=== PATIENT | male | born 1975 | race Caucasian/White ===

== ENCOUNTER 2021-01-25 13:06 | Outpatient (CLI) | payer SELFPAY ==
--- NOTE | 2021-01-25 13:16 | XR_ITS ---
WS: [id number] Cervical spine, 3 views, 01/25/2021 Clinical Data: M54.2 - Cervicalgia Comparison: None. Findings: No compression fractures are seen. The disc heights are normal. There is no prevertebral so ft tissue swelling. There is minimal spurring of the anterior inferior C3 vertebral body. The odontoi d is unremarkable. The soft tissues of the neck and the lung apices are normal. XR/XR cervical spine 3V* [id number] Impression: Minimal C3 osteoarthritis.
[2021-01-25 14:07] LABS: Alanine Aminotransferase 18 U/L (0-41); Albumin Level 4.4 g/dL (3.5-5.2); Alkaline Phosphatase 84 IU/L (40-130); Anion Gap 15.8 (5-19); Aspartate Amino Transferase 17 U/L (0-40); Blood Urea Nitrogen 6 mg/dL (6-20); Calcium 8.8 mg/dL (8.5-10.5); Carbon Dioxide 23 mmol/L (22-29); Chloride 105 mmol/L (98-107); Chol HDL Ratio 4.97 mg/dL (1.0-5.00); Cholesterol 149 mg/dL (0-200); Globulin 2.3 g/dL (1.3-4.6); Glomerular Filtration Rate 123.1 mL/min (90-130); Glucose 94 mg/dL (65-115); HDL Cholesterol 30 mg/dL (60-100); LDL Cholesterol Calculated 73 mg/dL (50-129); LDL HDL Ratio 2.43 RATIO (0.00-3.22); Osmolality Calculated 287 mOsm/kg (285-295); Potassium 3.8 mmol/L (3.5-5.1); Sodium 140 mmol/L (136-145); Testosterone Total 493.2 ng/dL (249-836); Thyroid Stimulating Hormone 1.13 uIU/mL (0.27-4.20); Total Bilirubin 0.4 mg/dL (0.15-1.2); Total Protein 6.7 g/dL (6.6-8.7); Triglycerides 228 mg/dL (0-150)
== END 2021-01-25 13:07 | disposition home or self-care (01) ==
LOC: RAD 13:11
PROVIDERS: PCP Nurse Practitioner Family; Visit Provider Nurse Practitioner Family
DX: I10 Essential (primary) hypertension (principal); R53.83 Other fatigue; E78.5 Hyperlipidemia, unspecified; M47.812 Spondylosis without myelopathy or radiculopathy, cervical region
CPT/HCPCS: 72040; 80053; 80061; 84403; 84443

== ENCOUNTER 2023-04-17 15:22 | Outpatient (CLI) | payer OTHER, SELFPAY ==
--- NOTE | 2023-04-17 15:39 | XRR_ITS ---
PROCEDURE INFORMATION: Exam: XR Right Foot Exam date and time: 04/17/2023 3:57 PM Age: 47 years old Clinical indication: Pain and injury or trauma; Other: Twisted ankle 2 weeks ago; Swelling, leg or foot; Right; Patient HX: Swollen and medial pain; Additional info: M25.571 - pain in right ankle and joints of right foot TECHNIQUE: Imaging protocol: Radiologic exam of the right foot. Views: 3 or more views. COMPARISON: No relevant prior studies available. FINDINGS: Bones/joints: No acute fracture. No dislocation. Normal bone mineralization. No joint effusion. Joint spaces are maintained. Soft tissues: No soft tissue swelling. No radiopaque foreign body. XR/XR foot RT min 3V* [id number] IMPRESSION: Negative radiographs of the right foot. Followup imaging recommended in 7-14 days if clinical concern for fracture persists.
[2023-04-17 16:02] LABS: Uric Acid 5.3 mg/dL (3.4-7.0)
== END 2023-04-17 15:23 | disposition home or self-care (01) ==
LOC: LAB 15:24
PROVIDERS: PCP Nurse Practitioner Family; Visit Provider Nurse Practitioner Family
DX: M25.571 Pain in right ankle and joints of right foot
CPT/HCPCS: 73630; 84550

== ENCOUNTER 2023-04-22 11:00 | Outpatient (CLI) | payer OTHER, SELFPAY | END 2023-04-22 11:01 | disposition home or self-care (01) | LOC: SPT 11:01 | PROVIDERS: PCP Nurse Practitioner Family; Visit Provider Podiatrist Foot & Ankle Surgery | DX: Z46.89 Encounter for fitting and adjustment of other specified devices (principal); S99.921D Unspecified injury of right foot, subsequent encounter; X58.XXXD Exposure to other specified factors, subsequent encounter; S93.401A Sprain of unspecified ligament of right ankle, initial encounter; X50.9XXA Other and unspecified overexertion or strenuous movements or postures, initial encounter | CPT/HCPCS: 97760; 99203; L1902 ==

== ENCOUNTER → 2023-05-06 09:42 | Outpatient (BNVA) | payer OTHER, SELFPAY | PROVIDERS: PCP Nurse Practitioner Family; Visit Provider Podiatrist Foot & Ankle Surgery | DX: M84.373A Stress fracture, unspecified ankle, initial encounter for fracture (principal); S93.401A Sprain of unspecified ligament of right ankle, initial encounter; X50.9XXA Other and unspecified overexertion or strenuous movements or postures, initial encounter | CPT/HCPCS: 99213 ==

== ENCOUNTER 2023-05-21 16:53 | Outpatient (CLI) | payer OTHER, SELFPAY ==
--- NOTE | 2023-05-21 16:45 | MR_ITS ---
WS: [id number] MRI RIGHT ANKLE WITHOUT CONTRAST. COMPARISON: Radiographs RIGHT foot 04/17/2023 Multiplanar, multisequence imaging is performed without contrast. Moderate amount of marrow edema throughout the navicular. No fracture is identified by MRI. There is narrowing of the talonavicular joint space with fluid and edema surrounding the navicular. Calcaneus including the anterior calcaneal process is normal. There is additional very small amount of edema in the anterior medial talus which may be an impaction point with the abnormal navicular. The distal fi bula appears normal. Base of the fifth metatarsal is normal. There is minimal fluid in the posterior joint. There is soft tissue edema most significant surroundin g the abnormal navicular. The anterior tibial tendon is closely associated with the edema but the tendon itself appears normal. This is also the area where the pain marker is placed. There is edema extending along the tendon she ath but no tear. The extensor hallucis longus and extensor digitorum longus tendons are negative. Per bruno brevis and longus are normal. The flexor digitorum and flexor hallucis longus are normal. Abnormal posterior tibial tendon where it is closely associated with the dorsal surface of the navicu lar. There is loss of the normal tendon. There is increased signal in this location along with the ab normal navicular. There is loss of continuity and I suspect there is at least a partial tear if not c omplete tear. Anterior talofibular ligament is a small caliber and poorly visualized in its entirety. There is not a lot of edema in this location. The posterior talofibular ligament is normal. Spring ligament is thi n with some increased T2 signal but no complete tear. Mild increased T2 striations in the deltoid lig ament which is normal. There is no full-thickness tear. IMPRESSION: 1. Extensive acute marrow edema throughout the navicular. There is additional edema within the adjac ent anteromedial talus which is probably an impaction point from the trauma. I suspect there are prob ably microfractures. For more sensitive evaluation for fracture consider follow-up CT evaluation. 2. Abnormal posterior tibial tendon. As the posterior tibial tendon passes along the posterior kamari cular there is loss of the normal configuration of the tendon. High-grade tear if not complete of the posterior tibial tendon. 3. Largest amount of edema and soft tissue abnormality is associated with the navicular and the post erior tibial tendon. 4. Mild tenosynovitis anterior tibial tendon. 5. Mild sprain of the spring ligament. 6. The anterior talofibular ligament is very poorly visualized. There is no significant amount of ed dottie at this location. The posterior talofibular ligament is normal. 7. Normal deltoid ligament. 8. Normal peroneal tendons.
== END 2023-05-21 16:54 | disposition home or self-care (01) ==
LOC: RAD 16:53
PROVIDERS: PCP Nurse Practitioner Family; Visit Provider Podiatrist Foot & Ankle Surgery
DX: M84.373A Stress fracture, unspecified ankle, initial encounter for fracture (principal); S93.401A Sprain of unspecified ligament of right ankle, initial encounter; X58.XXXA Exposure to other specified factors, initial encounter
CPT/HCPCS: 73721

== ENCOUNTER 2023-05-26 15:32 | Outpatient (CLI) | payer OTHER, SELFPAY | END 2023-05-26 15:33 | disposition home or self-care (01) | LOC: SPT 15:32 | PROVIDERS: PCP Nurse Practitioner Family; Visit Provider Podiatrist Foot & Ankle Surgery | DX: Z46.89 Encounter for fitting and adjustment of other specified devices (principal); S93.401D Sprain of unspecified ligament of right ankle, subsequent encounter; X58.XXXD Exposure to other specified factors, subsequent encounter; M84.371A Stress fracture, right ankle, initial encounter for fracture; S93.401A Sprain of unspecified ligament of right ankle, initial encounter; X50.1XXA Overexertion from prolonged static or awkward postures, initial encounter | CPT/HCPCS: 97760; 99213; L4361 ==

== ENCOUNTER → 2023-06-09 10:57 | Outpatient (BNVA) | payer OTHER, SELFPAY | PROVIDERS: PCP Nurse Practitioner Family; Visit Provider Podiatrist Foot & Ankle Surgery | DX: M84.373A Stress fracture, unspecified ankle, initial encounter for fracture (principal); S93.401A Sprain of unspecified ligament of right ankle, initial encounter; M84.371A Stress fracture, right ankle, initial encounter for fracture; X50.1XXA Overexertion from prolonged static or awkward postures, initial encounter | CPT/HCPCS: 99214 ==

== ENCOUNTER 2023-06-17 05:56 | Day surgery (SDC) | payer OTHER, SELFPAY ==
[2023-06-17] VITALS (9 sets, daily range): BP systolic 108–155; BP diastolic 60–103; PULSE 62–84; RESP 16–18; TEMP 36.1–36.6; O2SAT 92–98
--- NOTE | 2023-06-17 | XR_ITS ---
WS: [id number] C-ARM RADIOGRAPHS RIGHT FOOT; 1 IMAGES HISTORY: [facility] COMPARISON: None available. Intraoperative marker over the navicular. IMPRESSION: Intraoperative imaging during procedure.
[2023-06-17] MEDS: sodium chloride 0.9% 1,000 ML 30 ML IV (06:23)
[2023-06-17] MEDS: acetaminophen 1,000 MG/100 ML PIGGYBACK 400 MG IV (06:24)
[2023-06-17] MEDS: gabapentin 300 mg Capsule PO (06:28)
--- NOTE | 2023-06-17 06:43 | W.PM.OPSUD ---
Surgery/Procedure H&P Update DATE OF PROCEDURE: June 17, 2023 DATE H&P PERFORMED: 06/09/23 H&P UPDATE INFORMATION: I have reviewed H&P completed within last 30 days, I have examined patient prior to procedure, No changes to prior documentation and H&P is in [facility] EMR on date indicated PREOP DIAGNOSIS: Right flexor tendon rupture PLANNED PROCEDURE: Operation Date: 06/17/23 07:00 Proposed Procedures p Reconstruction Tendon Reconstruction, Advancement Posterior Tibial Tendon(Right) - Mayur Petty DPM
--- NOTE | 2023-06-17 06:55 | ANES.PREANE2 ---
Pre-Anesthetic Assessment Height/Weight: Height 1.78 m Weight 81.647 kg Temp Pulse Resp BP Pulse Ox O2 Del Method 97.4 F L 66 18 146/91 98 Room Air 06/17/23 06:11 06/17/23 06:11 06/17/23 06:11 06/17/23 06:11 06/17/23 06:11 06/17/23 06:11 Preop Diagnosis: Right flexor tendon rupture Operation Date: 06/17/23 07:00 Proposed Procedures p Reconstruction Tendon Reconstruction, Advancement Posterior Tibial Tendon(Right) - Mayur Petty DPM Familial anesthetic complications: None Was Beta Pura taken within 24 hours: N/A Was Clonidine taken within 24 hours: N/A Last intake: Intake Last Liquid Date 06/16/23 Last Liquid Time 00:00 Last Solid Date 06/16/23 Last Solid Time 18:00 Social No alcohol and No tobacco Exam alert, oriented x 3, clear to auscultation bilaterally and regular rate & rhythm Airway Mallampati: Class I Dentition: full Anesthetic Plan ASA status: 1 Anesthesia: General and Regional (specify below) Risk of > 500 ml blood loss (7ml/kg in children): No Medications/Allergies Home Medications Medication Instructions Recorded Confirmed Last Taken Type ASO brace #1 ea 04/22/23 06/09/23 Unknown Rx Crutches #1 ea 05/22/23 06/09/23 Unknown Rx CAM boot #1 ea 05/26/23 06/09/23 Unknown Rx hydrocodone 5 mg-acetaminophen 325 1 tab PO Q6H PRN pain #28 tabs 06/17/23 Unknown Rx mg tablet Allergies Allergy/AdvReac Type Severity Reaction Status Date / Time No Known Allergies Allergy Verified 06/09/23 11:01 Current Medications Generic Name Dose Route Start Last Admin Trade Name Freq PRN Reason Stop Dose Admin Sodium Chloride 1,000 mls @ 30 mls/hr 06/17/23 06:00 06/17/23 06:23 Sodium Chloride 0.9% IV 06/18/23 05:59 30 mls/hr .Q24H APARNA Administration PFSH Anesthesia Medical History Fatigue Social History Alcohol intake: former Data Anesthesia Cardiac Studies: No Data to Display
[2023-06-17] MEDS: ceFAZolin 2,000 MG in sodium chloride 0.9% (plus) 50 ML 100 MG IV (07:00)
--- NOTE | 2023-06-17 07:11 | ANES.PROC ---
Anesthesia Procedures Procedure/Date: 06/17/23 Nerve Block ^: Nerve Block 1: Main Anesthesia: general anesthesia Time Out Performed: Yes Consent: requested by attending/covering physician, from patient, from other, risks and benefits reviewed and patient agrees to proceed Nerve block location: popliteal (R) Anesthesia monitors applied: pulse oximetry, EKG, BP cuff and oxygen Nerve block position: supine Anesthetic Used: ropivicaine 0.5% (30 ml) and with decadron (4 mg) Ultrasound used to: recognize landmarks Nerve Stimulator Used?: Yes Interscalene/Femoral BLK: 4 stimuplex 21 g needle used for position and inplane approach, visualize local anesthetic spread and no vascular puncture identified Injection: neg aspiration of heme Complications: none
[2023-06-17] MEDS: fentaNYL 50 mcg/mL INJ 2mL IVP (08:12)
[2023-06-17] MEDS: HYDROcodone-acetaminophen 5-325 mg Tablet 1 TAB PO (08:44)
--- NOTE | 2023-06-17 09:05 | ANE.PACU2 ---
Inpatient post-anesthesia follow up: Airway intact: Yes Vital signs: Temperature 97 F Pulse Rate 75 Respiratory Rate 16 Blood Pressure 135/84 Pulse Oximetry 95 Oxygen Delivery Me thod Room Air Oxygen Flow Rate 6 Fraction of Inspir ed Oxygen Hydration adequate: Yes Nausea and vomiting: No Pain level: 1 Mental status: Baseline
--- NOTE | 2023-06-17 10:44 | P.BOP_ITS ---
Date of procedure: 06/17/2023 Surgeon name: Dr. Mayur Petty D.P.M. Operating Cost Clerk(s) name(s): Jose Procedure(s) performed: Right foot posterior tibial tendon reconstruction and advancement Description of findings: Partial tendon rupture at insertion on navicular tuberosity with split longitudinal tear posterior tibial tendon Estimated blood loss: 2 cc Tourniquet time: 35 minutes Specimen(s) removed: None Post-operative diagnosis: Right posterior tibial tendon tear
--- NOTE | 2023-06-17 10:45 | PM.OP ---
Operative Report Date of procedure: June 17, 2023 Pre-op diagnosis: Right posterior tibial tendon tear Post-op diagnosis: Same Post-op findings: Split longitudinal tear of right posterior tibial tendon just proximal to insertion at the navicular tuberosity. Partial tear of the most dorsal portion of the posterior tibial tendon at the attachment of the navicular tuberosity. Procedure done: Right posterior tibial tendon reconstruction and advancement CPT 67658 Implants: 1 knotless Dx fiber tack anchor from [employer] Surgeon: Mayur Petty DPM Parcel Wrapper: Jose Estimated blood loss: 2 cc 35 minutes Complications: None Findings: See above Procedure: Patient is a 47-year-old male that has a history of right ankle injury which resulted in tear of posterior tibial tendon. The extent of the injury was confirmed on MRI and necessitate surgical intervention. A lengthy discussion regarding the procedure, including risks and complications has been had with the patient and is noted in the recent clinic note. Written and verbal consent have been obtained. All patient questions have been answered to the patient?s satisfaction. No written or verbal guarantees have been given or implied. The patient has been NPO since midnight. The history has been reviewed and the history and physical is current. The signed consent was confirmed and placed in the patient chart. Patient imaging has been reviewed and is consistent with the diagnosis. Under mild sedation, the patient was brought into the operating room and placed on the table in the supine position. A popliteal block was performed by the anesthesia department. IV antibiotics were given by the anesthesia team as preoperative surgical prophylaxis. General sedation was then performed by the anesthesiateam. A pneumatic tourniquet was then placed about the right thigh. The operative extremity was then prepped and draped in the usual fashion. The extremity was then elevated and exsanguinated before the tourniquet was inflated to 325 mmHg. After inflation, the following procedure was then performed. Attention was directed to the medial aspect of the right foot where a 6 cm incision was made using a #15 blade just dorsal to the course of the posterior tibial tendon down to the level of the navicular tuberosity. Blunt dissection was carried out through subcutaneous and superficial fascia using Metzenbaum scissors. Care was taken to avoid adjacent neurovascular structures. Dissection was carried down to the posterior tibial tendon sheath. A #15 blade was used to incise the tendon sheath before Metzenbaum scissors were used to open up the posterior tibial tendon sheath down to the level of the insertion. The posterior tibial tendon was visualized and was inspected. There was noted to be a split longitudinal tear at the most distal aspect of the tendon with a tear at the most dorsal aspect of the tendon where it attaches to the navicular tuberosity. Using 2-0 FiberWire the split longitudinal tear was retubularized. It was decided at this point to anchor the most dorsal aspect of the tendon back down to the navicular tuberosity. The guidewire was driven to the medial aspect of the navicular. Good positioning of the wire was confirmed on C-arm imaging. This wire serve as a airplane pilot photogrammetry hole for the knotless DX anchor from [employer]. The anchor was then inserted per the manufacture protocol. The sutures were then passed through the posterior tibial tendon and it was anchored down to the navicular tuberosity. Good position of the tendon was noted. No other tears were visualized. The site was then irrigated with copious nonsterile saline before attention was directed to closure. Deep tissue including tendon sheath was closed using 3-0 Vicryl followed by subcuticular closure with 4-0 Vicryl and skin closure with 4-0 nylon in running interlocking fashion. The tourniquet was let down and good hemostasis was noted to all digits of the right foot. The incision was then dressed with Xeroform, 4 x 4 gauze, Kerlix, Pipe. The patient was then placed in a cam boot. The patient tolerated the procedure and anesthesia well and without complication. The patient was transported from the operating room to the recovery room with vital signs stable and vascular status intact to all digits of the right foot. The patient was given both written and verbal instructions to remain nonweightbearing to the operative extremity, to keep dressings/splint clean, dry and intact and to take pain medication as directed. The patient will follow-up in the outpatient setting at their scheduled appointment. The patient was discharged with my personal number and was instructed to call if any questions or issues should arise. They were discharged home once anesthesia criteria was met.
== END 2023-06-17 09:05 | disposition home or self-care (01) ==
PROVIDERS: PCP Nurse Practitioner Family; Visit Provider Podiatrist Foot & Ankle Surgery
PROC: (CPT 28238; principal; 2023-06-17 07:00)
DX: S96.811A Strain of other specified muscles and tendons at ankle and foot level, right foot, initial encounter (principal); X58.XXXA Exposure to other specified factors, initial encounter
CPT/HCPCS: 28238; 73620; 76000; C1713; J0131; J0690; J1100; J2704; J2795; J3010; J7030

== ENCOUNTER → 2023-06-24 14:36 | Outpatient (BNVA) | payer OTHER, SELFPAY | PROVIDERS: PCP Nurse Practitioner Family; Visit Provider Podiatrist Foot & Ankle Surgery | DX: M84.371D Stress fracture, right ankle, subsequent encounter for fracture with routine healing (principal); S93.401D Sprain of unspecified ligament of right ankle, subsequent encounter; X58.XXXD Exposure to other specified factors, subsequent encounter | CPT/HCPCS: 99024; A6446 ==

== ENCOUNTER → 2023-07-01 14:45 | Outpatient (BNVA) | payer OTHER, SELFPAY | PROVIDERS: PCP Nurse Practitioner Family; Visit Provider Podiatrist Foot & Ankle Surgery | DX: Z98.890 Other specified postprocedural states (principal); M84.371D Stress fracture, right ankle, subsequent encounter for fracture with routine healing; S93.401D Sprain of unspecified ligament of right ankle, subsequent encounter; X58.XXXD Exposure to other specified factors, subsequent encounter | CPT/HCPCS: 99024 ==

== ENCOUNTER 2023-08-18 06:00 | Outpatient (RCR) | payer OTHER, SELFPAY | END 2023-08-23 23:59 | disposition home or self-care (01) | LOC: WPT 06:00 | PROVIDERS: PCP Nurse Practitioner Family; Visit Provider Podiatrist Foot & Ankle Surgery | DX: Z47.89 Encounter for other orthopedic aftercare (principal) | CPT/HCPCS: 97110; 97112; 97161; 97530 ==

== ENCOUNTER 2023-08-24 06:00 | Outpatient (RCR) | payer OTHER, SELFPAY | END 2023-09-23 23:59 | disposition home or self-care (01) | LOC: WPT 06:00 | PROVIDERS: PCP Nurse Practitioner Family; Visit Provider Podiatrist Foot & Ankle Surgery | DX: Z47.89 Encounter for other orthopedic aftercare (principal) | CPT/HCPCS: 97110; 97112; 97140; 97164; 97530 ==

== ENCOUNTER 2023-09-21 10:25 | Emergency (ER) | payer OTHER, SELFPAY ==
[2023-09-21 11:04] VITALS: BP 147/92; PULSE 84; RESP 18; TEMP 36.7; O2SAT 97; BMI 25.7
--- NOTE | 2023-09-21 11:08 | XRR_ITS ---
PROCEDURE INFORMATION: Exam: XR Right Ankle Exam date and time: 09/21/2023 11:22 AM Age: 47 years old Clinical indication: Pain; Prior surgery; Surgery date: 1-6 months; Surgery type: Right ankle approx 3 months ago TECHNIQUE: Imaging protocol: Radiologic exam of the right ankle. Views: 3 or more views. COMPARISON: CR XR ankle RT min 3V* [id number] 09/17/2023 3:43 PM FINDINGS: Bones/joints: The bones remain demineralized. No acute fracture. Stable small nonacute ossicle abuts the tip of the lateral malleolus. Ankle mortise is normal. Soft tissues: There is persistent mild soft tissue swelling. XR/XR ankle RT min 3V* [id number] IMPRESSION: Stable nonacute findings.
[2023-09-21 11:18] VITALS: BP 147/92; PULSE 84; RESP 18; O2SAT 97
--- NOTE | 2023-09-21 11:52 | XR_ITS ---
WS: [id number] RIGHT KNEE: 3 VIEW(S) TECHNIQUE: AP, oblique(s) and lateral. HISTORY: pain COMPARISON: None available. No fracture or dislocation. No joint space narrowing or osteophytes. No joint effusion. No soft tissue abnormality. XR/XR knee RT 3V* [id number] IMPRESSION: Normal RIGHT knee.
[2023-09-21 11:55] LABS: Basophils % 0.3 %; Eosinophils % 0.3 %; Hematocrit 45.9 % (37-53); Lymphocytes # 2.6 10^3/uL (0.8-4.8); Lymphocytes % 33.4 %; Mean Corpuscular HGB Conc 35.3 g/dL (30-55); Mean Corpuscular Hemoglobin 32.1 pg (27-33); Mean Corpuscular Volume 91.1 fl (82-101); Mean Platelet Volume 10.4 fL (7.4-10.4); Monocytes # 0.7 10^3/uL (0.2-0.9); Monocytes % 8.2 %; Neutrophils # 4.57 10^3/uL (1.8-7.7); Neutrophils % 57.7 %; Nucleated Red Blood Cells % 0 %; Platelet Count 183 10^3/cmm (157-399); Red Blood Count 5.04 10^6/uL (3.85-5.65); Red Cell Distribution Width 12.1 % (12.1-15.1); White Blood Count 7.91 10^3/uL (3.29-11.43)
--- NOTE | 2023-09-21 11:56 | ED_ITS ---
HPI - Extremity Problem 2 General: Chief complaint: Extremity Injury, Lower Stated complaint: right ankle pain, post surgery swelling Time Seen by Provider: 09/21/23 11:08 History of Present Illness: 47-year-old male presents emergency comp laining of right ankle pain. Approximately 3 months ago patient had a surgery on his right ankle with posterior tibial tendon reconstruction. He reinjured around August 26 but was not seen then. He is complaining of pain at the proximal fibula and pain at the medial malleolus echo. No swelling no fever sweats chills has not had any redness or inflammation at the site of the incision. Associated symptoms: Deny chest pain, fever(s) or rash Review of Systems 2 Const: Denies: fever(s) or chills Card: Denies: chest pain Resp: Denies: dyspnea : Denies: dysuria, urinary frequency or urinary urgency Musc: Denies: neck pain or back pain Skin/Breast: Denies: rash PFSH ED 2 PFSH: Medical History Fatigue Social History Smoking and tobacco/nicotine status: current every day tobacco/nicotine user Alcohol intake: former Physical Exam 2 Const: COMMON NORMALS: no acute distress GENERAL APPEARANCE: cooperative and comfortable ORIENTATION/CONSCIOUSNESS: Yes awake, Yes oriented to person, Yes oriented to place and Yes oriented to time HENMT: COMMON NORMALS: normocephalic, atraumatic and hearing grossly normal bilaterally HEAD & SCALP: normocephalic and atraumatic Resp: COMMON NORMALS: normal respiratory effort, No retractions and No use of accessory muscles Extremity: COMMON NORMALS: normal to inspection, capillary refill normal, no clubbing, cyanosis or edema, no calf tenderness and no pedal edema OTHER: Discomfort with compression of the proximal tibia hypersensitivity at the incision site inferior to the medial malleolus Neuro: SENSORIUM/ORIENTATION: Yes oriented to person, Yes oriented to place and Yes oriented to time Skin: COMMON NORMALS: no rashes or lesions noted GENERAL SKIN EXAM: no rashes or lesions noted Course 2 Vital Signs: Vital signs: Vital Signs Temperature 98.1 F 09/21/23 11:04 Pulse Rate 86 09/21/23 12:35 Respiratory Rate 16 09/21/23 12:35 Blood Pressure 141/78 09/21/23 12:35 Pulse Oximetry 99 09/21/23 12:35 Oxygen Delivery Me thod Room Air 09/21/23 11:18 MDM - Extremity (Nontraumatic) Medical Decision Making X-ray of the knee and ankle did not show any acute fractures. He is hypersensitive in the area of the previous incision for the posterior tibial tendon repair. Will start him on Lyrica 75 twice daily nonweightbearing with crutches and have him follow-up with podiatry. Recommend wearing the cam boot that he was dispensed after his surgery. Medical Records I reviewed the patient's medical records. Lab Data I reviewed the patient's lab results. 09/21/23 11:45 09/21/23 11:45 Radiology Impressions Ankle X-Ray 09/21/23 11:08 IMPRESSION: Stable nonacute findings. Knee X-Ray 09/21/23 11:52 IMPRESSION: Normal RIGHT knee. Laboratory Results WBC 7.91 10^3/uL (3.29-11.43) 09/21/23 11:45 RBC 5.04 10^6/uL (3.85-5.65) 09/21/23 11:45 Hgb 16.20 g/dL (11.27-16.99) 09/21/23 11:45 Hct 45.9 % (37-53) 09/21/23 11:45 MCV 91.1 fl (82-101) 09/21/23 11:45 MCH 32.1 pg (27-33) 09/21/23 11:45 MCHC 35.3 g/dL (30-55) 09/21/23 11:45 RDW 12.1 % (12.1-15.1) 09/21/23 11:45 Plt Count 183 10^3/cmm (157-399) 09/21/23 11:45 MPV 10.4 fL (7.4-10.4) 09/21/23 11:45 Neut % (Auto) 57.7 % 09/21/23 11:45 Lymph % (Auto) 33.4 % 09/21/23 11:45 Bay % (Auto) 8.2 % 09/21/23 11:45 Eos % (Auto) 0.3 % 09/21/23 11:45 Baso % (Auto) 0.3 % 09/21/23 11:45 Neut # (Auto) 4.57 10^3/uL (1.8-7.7) 09/21/23 11:45 Lymph # (Auto) 2.6 10^3/uL (0.8-4.8) 09/21/23 11:45 Bay # (Auto) 0.7 10^3/uL (0.2-0.9) 09/21/23 11:45 Eos # (Auto) 0.0 10^3/uL (0.0-0.8) 09/21/23 11:45 Baso # (Auto) 0.0 10^3/uL (0.0-0.1) 09/21/23 11:45 Nucleated RBC % (auto) 0 % 09/21/23 11:45 Nucleated RBCs # 0.0 /100WBC 09/21/23 11:45 ESR 4 mm/hr (0-10) 09/21/23 11:45 Sodium 135 mmol/L (136-145) L 09/21/23 11:45 Potassium 3.5 mmol/L (3.5-5.1) 09/21/23 11:45 Chloride 101 mmol/L (98-107) 09/21/23 11:45 Carbon Dioxide 24 mmol/L (22-29) 09/21/23 11:45 Anion Gap 13.5 (5-19) 09/21/23 11:45 BUN 5 mg/dL (6-20) L 09/21/23 11:45 Creatinine 0.6 mg/dL (0.7-1.2) L 09/21/23 11:45 GFR Calculation 145.7 mL/min (90-130) H 09/21/23 11:45 Glucose 94 mg/dL (65-115) 09/21/23 11:45 Calculated Osmolality 277 mOsm/kg (285-295) L 09/21/23 11:45 Calcium 9.3 mg/dL (8.5-10.5) 09/21/23 11:45 Total Bilirubin 0.4 mg/dL (0.15-1.2) 09/21/23 11:45 AST 17 U/L (0-40) 09/21/23 11:45 ALT 16 U/L (0-41) 09/21/23 11:45 Alkaline Phosphatase 71 U/L (40-130) 09/21/23 11:45 C-Reactive Protein 4.6 mg/L (0.0-4.9) 09/21/23 11:45 Total Protein 7.4 g/dL (6.6-8.7) 09/21/23 11:45 Albumin 4.3 g/dL (3.5-5.2) 09/21/23 11:45 Globulin 3.1 g/dL (1.3-4.6) 09/21/23 11:45 All radiology interpretation(s) finalized by discharge Discharge Plan Discharge Patient Disposition: Home Clinical Impression: Right ankle pain Qualifiers: Chronicity: acute Qualified Code(s): M25.571 - Pain in right ankle and joints of right foot Condition: Stable Prescriptions: New Lyrica 75 mg capsule 75 mg PO BID Qty: 60 0RF No Action (DME) ASO brace See Rx Instructions .Route .MEDSUPPLY Qty: 1 0RF Rx Instructions: As directed (DME) CAM boot See Rx Instructions .Route .MEDSUPPLY Qty: 1 0RF Rx Instructions: As directed cyclobenzaprine 10 mg tablet 10 mg PO TID PRN (Reason: muscle spasm) Qty: 20 0RF (DME) ASO brace See Rx Instructions .Route .MEDSUPPLY Qty: 1 0RF Rx Instructions: As directed ropinirole 1 mg tablet 1 mg PO BID Qty: 60 0RF hydrocodone-acetaminophen 5-325 mg tablet 1 tab PO Q6H PRN (Reason: pain) 5 Days Qty: 20 0RF (DME) Crutches See Rx Instructions .Route .MEDSUPPLY Qty: 1 0RF Rx Instructions: As directed to help patient with stability and remaining non weight bearing to the Right LE hydrocodone-acetaminophen 5-325 mg tablet 1 tab PO Q6H PRN (Reason: pain) Qty: 28 0RF Discharge Orders: Discharge ED (Routine); Ordered 09/21/23 Ordered By: Logan Bocanegra Referrals: Heather Miller, FAMILY INDEPENDENCE CASE MANAGER [Primary Care Provider] - Discharge Diet: Usual diet Discharge Activity: Limit activity as instructed Patient Instructions: Opioid Safety, Pain Management Activity Restrictions/Additional Instructions: Thank you for choosing [facility] for your healthcare needs today. It is very important that you follow up as instructed or that you return to the Emergency Department should you have concerns or if your condition changes or worsens in any way. Recommend nonweightbearing on the right foot use crutches and follow-up with podiatry as soon as you are able Coding Level of Care Code ED Blacksmith Helper for Humera Timmons
[2023-09-21 11:58] LABS: Erythrocyte Sedimentation Rate 4 mm/hr (0-10)
[2023-09-21 12:12] LABS: Alanine Aminotransferase 16 U/L (0-41); Albumin Level 4.3 g/dL (3.5-5.2); Alkaline Phosphatase 71 U/L (40-130); Anion Gap 13.5 (5-19); Aspartate Amino Transferase 17 U/L (0-40); Blood Urea Nitrogen 5 mg/dL (6-20); C Reactive Protein 4.6 mg/L (0.0-4.9); Calcium 9.3 mg/dL (8.5-10.5); Carbon Dioxide 24 mmol/L (22-29); Chloride 101 mmol/L (98-107); Globulin 3.1 g/dL (1.3-4.6); Glomerular Filtration Rate 145.7 mL/min (90-130); Glucose 94 mg/dL (65-115); Osmolality Calculated 277 mOsm/kg (285-295); Potassium 3.5 mmol/L (3.5-5.1); Sodium 135 mmol/L (136-145); Total Bilirubin 0.4 mg/dL (0.15-1.2); Total Protein 7.4 g/dL (6.6-8.7)
[2023-09-21 12:13] LABS: Creatinine Clr Calc Pharmacy 173.1683
[2023-09-21 12:35] VITALS: BP 141/78; PULSE 86; RESP 16; O2SAT 99
== END 2023-09-21 12:36 | disposition home or self-care (01) ==
PROVIDERS: Emergency Provider Family Medicine; PCP Nurse Practitioner Family
DX: M25.571 Pain in right ankle and joints of right foot (principal); Z72.0 Tobacco use
CPT/HCPCS: 36415; 73562; 73610; 80053; 85025; 85651; 86140; 99284

== ENCOUNTER 2023-09-25 09:45 | Outpatient (CLI) | payer OTHER, SELFPAY ==
--- NOTE | 2023-09-25 09:45 | MR_ITS ---
WS: [id number] MRI RIGHT ANKLE WITHOUT CONTRAST. COMPARISON: 05/21/2023, radiograph 09/21/2023 Multiplanar, multisequence imaging is performed without contrast. History: Recent posterior tibial tendon repair. Reinjury. 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 There is extensive new marrow edema throughout the foot. New marrow edema is extensively throughout t he talus and also along the posterior facet of the calcaneus. I suspect there may be a fracture throu gh the talar neck. Loss of the normal talar dome. Very subtle anterior osteochondral changes suggesti ng fractures from the recent injury. The anterior calcaneal process is normal. Previously described m arrow edema in the navicular has improved. There is new marrow edema in the cuboid, lateral and inter mediate cuneiforms. Edema noted in the proximal metatarsals. The Achilles tendon is normal. Plantar fascia is normal. Small amount of fluid in the posterior ankle joint. Distal fibula is intact. The repaired distal posterior tibial tendon is probably still intact. The very distal tendon is very thin but at least a portion of this tendon is visible. There is no fluid along the tendon sheath. Per bruno tendons and the flexor hallucis longus and flexor digitorum longus are normal size. Poorly visu alized extensor tendons. There is a large amount of edema surrounding the ankle. There is no widening of the Lisfranc articula tion the Lisfranc ligament appears intact although incompletely included on this ankle MRI. Deltoid l igament is intact. Anterior and posterior tibiofibular ligaments are intact. Complete tear of the ant erior talofibular ligament. Posterior talofibular ligament is intact. Calcaneofibular ligament is poo rly visualized but similar to the prior exam. MR/MR ankle RT wo con* [id number] IMPRESSION: 1. There is a large amount of marrow edema within the foot which is new since 05/21/2023. The marrow edema is now most extensive throughout the talus, a small portion of the calcaneus, cuboid, lateral and intermediate cuneiforms and prox imal metatarsals. Previously described marrow edema in the navicular has improv ed. 2. Osteochondral changes along the anterior talar dome consistent with trabecu lar injury and probable fractures. With the extent of edema in the talar neck I suspect there is probably a fracture through the talar neck. CT would provide additional information concerning the bone. 3. Small caliber posterior tibial tendon which has been recently repaired. It does not appear to be retorn or retracted but small caliber. There is no fluid along the course of the tendon sheath. 4. Complete acute tear of the anterior talofibular ligament. 5. Extensive soft tissue edema. 6. There is a small amount of edema in the proximal metatarsals. If clinically there is any concern for Lisfranc injury follow-up with foot radiographs and M RI the RIGHT foot should be obtained.
== END 2023-09-25 09:50 | disposition home or self-care (01) ==
PROVIDERS: PCP Nurse Practitioner Family; Visit Provider Nurse Practitioner Family
DX: S93.491A Sprain of other ligament of right ankle, initial encounter (principal); M93.271 Osteochondritis dissecans, right ankle and joints of right foot; R22.41 Localized swelling, mass and lump, right lower limb
CPT/HCPCS: 73721

== ENCOUNTER 2023-10-08 10:03 | Outpatient (CLI) | payer OTHER, SELFPAY ==
--- NOTE | 2023-10-08 10:00 | CT_ITS ---
WS: [id number] CT RIGHT ANKLE, NONCONTRAST HISTORY: suspected fx Technique: All CT scans at [facility] use at least one of these dose optimization techniques: automated exposure control; mA and/or kV adjustment per patient size (includes targeted exams where dose is matched to clinical indication); or iterative reconstruction. DLP: 240.62 mGy.cm COMPARISON: MRI RIGHT ankle 09/25/2023 There is abnormal density throughout the bones of the RIGHT ankle and hindfoot. Findings are most lik amos related to disuse osteopenia. Slight blunting and loss of the normal anterior distal tibial cortex. This corresponds to the marrow edema seen on the recent MRI due to trabecular injury. There is a focal defect along the anterior urbano us consistent with a small osteochondral lesion. There is very subtle change in the trabecular patter n deep to the anterior talar osteochondral lesion which is highly suspicious for fracture. This does correspond to the largest signal abnormality by MRI. There is no displaced fracture. No widening of t he interosseous membrane. There is a small osseous fragment measuring 4 mm in the distal tibiofibular articulation. Increased bony sclerosis involving the subtalar region of the calcaneus. This increase sclerosis could represent impaction fracture. Minimal marrow edema is noted in this location on the prior study. Mild soft tissue edema at the ankle. Well-circumscribed fragment is distal to the distal fibula are w ell-corticated and probably not related to the recent trauma. CT/CT ankle RT wo con* [id number] IMPRESSION: 1. 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 2. Osteochondral fracture involving the anterior talus may be an impaction sit e from the prior trauma. 3. There is additional loss of the normal cortex along the anterior distal tib ia which is probably an additional impaction site. 4. Although subtle there is a very slight interruption of the normal trabecula r pattern in the anterior talar neck which corresponds to the marrow edema by M RI. Suspect there is a very subtle fracture although there is no displacement. 5. Interosseous well-circumscribed 4 mm osseous density.
--- NOTE | 2023-10-08 11:00 | CT_ITS ---
WS: [id number] CT RIGHT FOOT, NONCONTRAST HISTORY: Suspected fx Technique: All CT scans at [facility] use at least one of these dose optimization techniques: automated exposure control; mA and/or kV adjustment per patient size (includes targeted exams where dose is matched to clinical indication); or iterative reconstruction. 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 Trabecular injury and possible fracture was previously described within the talus and along the anterior tibial plafond on the recent CT ankl e. Reidentified is the sclerosis along the subtalar portion of the calcaneus. There was no marrow preeti ma by MRI in this location. This could be a new finding or healed fracture. Tarsometatarsal alignment appears normal. No fractures are noted within the midfoot or distal foot. There is a lucency through the anterior prieto caneal process. Cannot confirm fracture. There is no definite marrow edema of any significance on the MRI. There is no displacement if this is a fracture. CT/CT foot RT wo con* [id number] IMPRESSION: 1. 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 2. Normal tarsometatarsal alignment. 3. No additional fractures are noted within the foot. Please refer to the CT a nkle report. 4. There is a subtle lucency through the anterior calcaneal process which is i ndeterminate for a fracture. No significant edema was noted on the MRI at this location.
== END 2023-10-08 10:04 | disposition home or self-care (01) ==
LOC: RAD 10:04
PROVIDERS: PCP Nurse Practitioner Family; Visit Provider Podiatrist Foot & Ankle Surgery
DX: S92.124A Nondisplaced fracture of body of right talus, initial encounter for closed fracture (principal); M85.871 Other specified disorders of bone density and structure, right ankle and foot
CPT/HCPCS: 73700

== ENCOUNTER → 2023-10-09 10:48 | Outpatient (BNVA) | payer OTHER, SELFPAY | PROVIDERS: PCP Nurse Practitioner Family; Visit Provider Podiatrist Foot & Ankle Surgery | DX: M85.80 Other specified disorders of bone density and structure, unspecified site (principal) | CPT/HCPCS: 36415; 80051; 82306; 82310; 83735 ==

== ENCOUNTER → 2023-10-23 10:51 | Outpatient (BNVA) | payer OTHER, SELFPAY | PROVIDERS: PCP Nurse Practitioner Family; Visit Provider Podiatrist Foot & Ankle Surgery | DX: M19.071 Primary osteoarthritis, right ankle and foot; M85.871 Other specified disorders of bone density and structure, right ankle and foot | CPT/HCPCS: 73610 ==

== ENCOUNTER 2023-11-06 11:35 | Outpatient (CLI) | payer OTHER, SELFPAY | END 2023-11-06 11:36 | disposition home or self-care (01) | LOC: SPT 11:36 | PROVIDERS: PCP Nurse Practitioner Family; Visit Provider Podiatrist Foot & Ankle Surgery | DX: Z46.89 Encounter for fitting and adjustment of other specified devices (principal); M84.371 Stress fracture, right ankle; S93.401S Sprain of unspecified ligament of right ankle, sequela; X58.XXXS Exposure to other specified factors, sequela | CPT/HCPCS: L1902 ==

== ENCOUNTER 2023-11-12 06:00 | Outpatient (RCR) | payer OTHER, SELFPAY | END 2023-11-23 23:59 | disposition home or self-care (01) | LOC: WPT 06:00 | PROVIDERS: PCP Nurse Practitioner Family; Visit Provider Podiatrist Foot & Ankle Surgery | DX: S92.101D Unspecified fracture of right talus, subsequent encounter for fracture with routine healing (principal); X58.XXXD Exposure to other specified factors, subsequent encounter | CPT/HCPCS: 97110; 97161 ==

== ENCOUNTER 2023-12-09 23:09 | Emergency (ER) | payer OTHER, SELFPAY ==
--- NOTE | 2023-12-09 23:16 | XRR_ITS ---
PROCEDURE INFORMATION: Exam: XR Right Ankle Exam date and time: 12/09/2023 11:36 PM Age: 47 years old Clinical indication: Injury or trauma; Fall; Blunt trauma; Right; Prior surgery; Surgery date: 1-6 months; Surgery type: Patient stated he just had tendon surgery on foot/ankle 5 months ago. Scar is on medial side of foot TECHNIQUE: Imaging protocol: Radiologic exam of the right ankle. Views: 3 or more views. COMPARISON: CR XR ankle RT min 3V* [id number] 10/23/2023 10:58 AM FINDINGS: Bones/joints: Severe bony demineralization. There is an acute horizontal fracture of the medial malleolus and an oblique fracture of the lateral malleolus below the tibia-fibular syndesmosis. No evidence of posterior malleolar fracture. No additional acute bony injury. Soft tissues: Severe diffuse soft tissue swelling. XR/XR ankle RT min 3V* [id number] IMPRESSION: Bimalleolar ankle fracture with severe periarticular soft tissue swelling. Bony demineralization may reflect prior immobilization.
[2023-12-09 23:18] VITALS: BP 157/87; PULSE 92; RESP 16; TEMP 36.9; O2SAT 96; BMI 25.1
[2023-12-09 23:22] VITALS: BP 141/82; PULSE 88; O2SAT 97
[2023-12-10] MEDS: HYDROcodone-acetaminophen 7.5-325 mg Tablet 1 TAB PO (00:14)
--- NOTE | 2023-12-10 00:14 | W.ED.EXTPRO ---
HPI - Extremity Problem General: Chief complaint: Extremity Injury, Lower Stated complaint: Rt Ankle Injury Time Seen by Provider: 12/09/23 23:22 Source: patient Mode of arrival: ambulatory Limitations: no limitations History of Present Illness: Patient is a 47-year-old male presents to the emergency department with a right ankle injury that he suffered about an hour prior to arrival. He states he tripped over a 4 x 4, had significant inversion injury and notes increasing swelling to both the medial and lateral aspect of his ankle extending proximally up his leg. He notes previous surgery where he had a tendon repair, no previous fractures. He has not taken anything for pain yet. Has been unable to walk due to the pain and swelling. MD Complaint: joint pain Onset (ago): hour(s) Pain Consistency: constant Location: right and lower extremity Radiation: proximal Exacerbating factors: range of motion, weight bearing and walking Associated symptoms: Deny chest pain, fever(s) or rash Related Data Previous Rx's Medication Instructions Recorded ASO brace #1 04/22/23 Crutches #1 05/22/23 CAM boot #1 05/26/23 ASO brace #1 11/06/23 DME: Walker #1 11/06/23 alendronate 70 mg tablet (Fosamax) 70 mg PO .weekly #12 tabs 11/27/23 hydrocodone 5 mg-acetaminophen 325 1 tab PO Q6H PRN pain 5 days #20 12/10/23 mg tablet tabs ropinirole 1 mg tablet 1 mg PO BID #180 tabs 12/11/23 Allergies Allergy/AdvReac Type Severity Reaction Status Date / Time No Known Allergies Allergy Verified 12/11/23 09:47 Review of Systems General: Reports: 10 or more systems reviewed and unremarkable except in HPI and below Const: Denies: fever(s) or chills Card: Denies: chest pain Resp: Denies: dyspnea or productive cough GI: Denies: abdominal pain, nausea, vomiting or diarrhea : Denies: flank pain Musc: Reports: joint pain, joint swelling and limited range of motion; Denies: neck pain, back pain, extremity pain, extremity swelling, joint redness, joint warmth or muscle weakness Skin/Breast: Denies: rash Neuro: Denies: headache(s), numbness in extremities or weakness in extremities PFSH ED PFSH: Medical History Osteopenia Fatigue Social History Smoking and tobacco/nicotine status: current every day tobacco/nicotine user Alcohol intake: former Physical Exam Const: COMMON NORMALS: no acute distress, patient oriented x3, no limitations, healthy appearing, alert and well nourished HENMT: COMMON NORMALS: normocephalic and atraumatic HEAD & SCALP: normocephalic and atraumatic Neck/C-Spine: COMMON NORMALS: full ROM, supple and no meningeal signs Resp: COMMON NORMALS: normal respiratory effort and No use of accessory muscles Extremity: NARRATIVE EXTREMITY EXAM: Diffuse swelling to the lateral and medial malleoli of the right ankle, swelling extends proximally up the coburn. 2+ dorsalis pedis and posterior tibial pulse. Good sensations distally. Exquisitely tender to palpation throughout the ankle joint. No bruising at this time. Can move his toes. No coolness to the extremity. Normal capillary refill. Neuro: COMMON NORMALS: patient oriented x3, moves all extremities, no focal motor deficits and no sensory deficits noted SENSORIUM/ORIENTATION: Yes alert MENINGEAL SIGNS: Yes no meningeal signs Skin: COMMON NORMALS: no rashes or lesions noted GENERAL SKIN EXAM: no rashes or lesions noted Course Vital Signs: Vital signs: Vital Signs Temperature 98.4 F 12/09/23 23:18 Pulse Rate 88 12/10/23 00:58 Respiratory Rate 16 12/09/23 23:18 Blood Pressure 130/59 12/10/23 00:58 Pulse Oximetry 97 12/10/23 00:58 Oxygen Delivery Me thod Room Air 12/09/23 23:22 MDM - Extremity (Nontraumatic) Medical Decision Making Patient presented after injuring his right ankle when he tripped over a 4 x 4. History of ligament repair to the right foot. Had quite a bit of swelling and tenderness to palpation, though his neurovascular status was intact with good pulses and good sensations distally. I do not suspect a vascular injury from this. An x-ray did show evidence of what appeared to be a bimalleolar fracture, we will place him in a posterior short leg splint with stirrup. He had no complaints of proximal fibula pain or knee pain altogether. He has an appointment with podiatry tomorrow, he will be followed up with this then. Post splint neurovascular status intact. Did give him 1 [place] here, reports minimal relief from pain. Patient discharged home at this time. Lab Data Radiology Impressions Ankle X-Ray 12/09/23 23:16 IMPRESSION: Bimalleolar ankle fracture with severe periarticular soft tissue swelling. Bony demineralization may reflect prior immobilization. All radiology interpretation(s) finalized by discharge Discharge Plan Discharge Patient Disposition: Home Clinical Impression: Bimalleolar ankle fracture Qualifiers: Encounter type: initial encounter Fracture type: closed Laterality: right Qualified Code(s): S82.841A - Displaced bimalleolar fracture of right lower leg, initial encounter for closed fracture Condition: Stable Prescriptions: No Action (DME) ASO brace See Rx Instructions .Route .MEDSUPPLY Qty: 1 0RF Rx Instructions: As directed (DME) CAM boot See Rx Instructions .Route .MEDSUPPLY Qty: 1 0RF Rx Instructions: As directed hydrocodone-acetaminophen 5-325 mg tablet 1 tab PO Q6H PRN (Reason: pain) 5 Days Qty: 20 0RF ropinirole 1 mg tablet 1 mg PO BID Qty: 180 0RF (DME) DME: Walker Unit See Rx Instructions .Route Qty: 1 0RF Rx Instructions: As directed (DME) ASO brace See Rx Instructions .Route .MEDSUPPLY Qty: 1 0RF Rx Instructions: As directed (DME) Crutches See Rx Instructions .Route .MEDSUPPLY Qty: 1 0RF Rx Instructions: As directed to help patient with stability and remaining non weight bearing to the Right LE alendronate [Fosamax] 70 mg tablet 70 mg PO .weekly Qty: 12 1RF Discharge Orders: Discharge ED (Routine); Ordered 12/10/23 Ordered By: Mayur Tirado Referrals: Heather Miller FNP [Primary Care Provider] - Discharge Diet: As Directed Discharge Activity: Use walker/crutches as instructed Patient Instructions: Ankle Fracture (ED) Activity Restrictions/Additional Instructions: Follow-up with podiatry tomorrow as already planned. Elevate the extremity at home and alternate Tylenol and ibuprofen. Crutches provided, nonweightbearing. Return with any new or concerning symptoms, such that if you cannot feel your toes or have a severe increase in pain you may need reevaluation. Coding Level of Care Code ED Electrical And Radio Mechanic for Humera Timmons
[2023-12-10 00:58] VITALS: BP 130/59; PULSE 88; O2SAT 97
--- NOTE | 2023-12-10 08:00 | DCPLANNER ---
messaged ortho for er f/u
== END 2023-12-10 01:00 | disposition home or self-care (01) ==
PROVIDERS: Emergency Provider Physician Assistant; PCP Nurse Practitioner Family
DX: S82.841A Displaced bimalleolar fracture of right lower leg, initial encounter for closed fracture (principal); W18.40XA Slipping, tripping and stumbling without falling, unspecified, initial encounter; Z72.0 Tobacco use
CPT/HCPCS: 29515; 73610; 99283; A4590; E0114

== ENCOUNTER 2023-12-16 07:50 | Day surgery (SDC) | payer OTHER, SELFPAY ==
[2023-12-16] VITALS (10 sets, daily range): BP systolic 105–129; BP diastolic 65–83; PULSE 56–71; RESP 14–158; TEMP 36.1–36.9; O2SAT 91–99
[2023-12-16] MEDS: sodium chloride 0.9% 1,000 ML 30 ML IV (08:27)
[2023-12-16] MEDS: acetaminophen 1,000 MG/100 ML PIGGYBACK 400 MG IV (08:28)
[2023-12-16] MEDS: gabapentin 300 mg Capsule PO (08:31)
--- NOTE | 2023-12-16 08:52 | P.HPUD_ITS ---
Surgery/Procedure H&P Update DATE OF PROCEDURE: December 16, 2023 DATE H&P PERFORMED: 12/10/23 H&P UPDATE INFORMATION: I have reviewed H&P completed within last 30 days, I have examined patient prior to procedure, No changes to prior documentation and H&P is in [facility] EMR on date indicated PLANNED PROCEDURE: Operation Date: 12/16/23 09:30 Proposed Procedures p ORIF Ankle ORIF Bimalleolar Fracture(Right) - Mayur Petty DPM
--- NOTE | 2023-12-16 09:04 | PC.NURSE ---
pt prepared for block for orif of an ankle. pt placed on 2l with nasal cannula, heart monitors and oxygen sensor. pt was given a 2 part block with a total of 30cc of 0.5%ropivicaine being placed. 20cc of ropivicaine was placed for a popliteal block then 10cc were placed for a adductor block. pt tolerated procedure well.
--- NOTE | 2023-12-16 09:04 | ANES.PREANE2 ---
Pre-Anesthetic Assessment Height/Weight: Height 1.8 m Weight 81.647 kg Temp Pulse Resp BP Pulse Ox O2 Del Method 97.7 F 60 18 129/81 98 Room Air 12/16/23 08:09 12/16/23 08:09 12/16/23 08:09 12/16/23 08:09 12/16/23 08:09 12/16/23 08:09 Operation Date: 12/16/23 09:30 Proposed Procedures p ORIF Ankle ORIF Bimalleolar Fracture(Right) - Mayur Petty DPM Familial anesthetic complications: None Was Beta Pura taken within 24 hours: N/A Was Clonidine taken within 24 hours: N/A Last intake: Intake Last Liquid Date 12/15/23 Last Liquid Time 22:00 Last Solid Date 12/15/23 Last Solid Time 22:00 Social Tobacco and No alcohol Exam alert, oriented x 3, clear to auscultation bilaterally and regular rate & rhythm CV/HEM Hypertension Anesthetic Plan ASA status: 2 Anesthesia: General and Regional (specify below) Risk of > 500 ml blood loss (7ml/kg in children): No Medications/Allergies Home Medications Medication Instructions Recorded Confirmed Last Taken Type ASO brace #1 ea 04/22/23 12/16/23 Unknown Rx Crutches #1 ea 05/22/23 12/16/23 Unknown Rx CAM boot #1 05/26/23 12/16/23 Unknown Rx ASO brace #1 ea 11/06/23 12/16/23 Unknown Rx DME: Walker #1 ea 11/06/23 12/16/23 Unknown Rx alendronate 70 mg tablet (Fosamax) 70 mg PO .weekly #12 tabs 11/27/23 12/16/23 12/13/23 Rx hydrocodone 5 mg-acetaminophen 325 1 tab PO Q6H PRN pain 5 days #20 12/10/23 12/16/23 12/15/23 Rx mg tablet tabs ropinirole 1 mg tablet 1 mg PO BID #180 tabs 12/11/23 12/16/23 12/15/23 Rx Allergies Allergy/AdvReac Type Severity Reaction Status Date / Time No Known Allergies Allergy Verified 12/15/23 09:14 Current Medications Generic Name Dose Route Start Last Admin Trade Name Freq PRN Reason Stop Dose Admin Sodium Chloride 1,000 mls @ 30 mls/hr 12/16/23 08:00 12/16/23 08:27 Sodium Chloride 0.9% IV 12/17/23 07:59 30 mls/hr .Q24H APARNA Administration PFSH Anesthesia Medical History Osteopenia Fatigue Social History Smoking and tobacco/nicotine status: current every day tobacco/nicotine user Alcohol intake: former Data Anesthesia Cardiac Studies: No Data to Display
--- NOTE | 2023-12-16 09:07 | ANES.PROC ---
Anesthesia Procedures Procedure/Date: 12/16/23 Nerve Block ^: Nerve Block 1: Main Anesthesia: general anesthesia Time Out Performed: Yes Consent: requested by attending/covering physician, from patient, from other, risks and benefits reviewed and patient agrees to proceed Nerve block location: adductor canal (R) Anesthesia monitors applied: pulse oximetry, EKG and BP cuff Nerve block position: supine Anesthetic Used: ropivicaine 0.5% (10 ml) and with decadron (2 mg) Ultrasound used to: recognize landmarks Nerve Stimulator Used?: No Interscalene/Femoral BLK: 4 stimuplex 21 g needle used for position and inplane approach, visualize local anesthetic spread and no vascular puncture identified Injection: neg aspiration of heme Patient Tolerated Procedure: well Complications: none Nerve Block 2: Main Anesthesia: general anesthesia Time Out Performed: Yes Consent: requested by attending/covering physician, from patient, from other, risks and benefits reviewed and patient agrees to proceed Nerve block location: popliteal (R) Anesthesia monitors applied: pulse oximetry, EKG and BP cuff Nerve block position: supine Anesthetic Used: ropivicaine 0.5% (20 ml) and with decadron (2 mg) Ultrasound used to: recognize landmarks Nerve Stimulator Used?: No Interscalene/Femoral BLK: 4 stimuplex 21 g needle used for position and inplane approach, visualize local anesthetic spread and no vascular puncture identified Injection: neg aspiration of heme Patient Tolerated Procedure: well Complications: none
[2023-12-16] MEDS: ceFAZolin 2,000 mg SDV 2000 MG IVP (09:14)
--- NOTE | 2023-12-16 10:57 | P.BOP_ITS ---
Date of procedure: 12/16/2023 Surgeon name: Dr. Mayur Petty D.P.M. Social Science Analyst(s) name(s): Caro Garcia Procedure(s) performed: Open reduction internal fixation right bimalleolar ankle fracture Description of findings: Right bimalleolar ankle fracture Estimated blood loss: 5 cc Tourniquet time: 73 minutes Specimen(s) removed: None Post-operative diagnosis: Bimalleolar ankle fracture right ankle
--- NOTE | 2023-12-16 11:00 | XR_ITS ---
WS: [id number] Exam: XR ankle RT min 3V* [id number] Date/Time of Exam: 12/16/2023 11:01 AM Reason For Exam: post op Comparison 12/09/2023. Fractures of the medial malleolus and distal fibula both stabilized with internal fixation. Both frac tures are in good alignment for healing. Degenerative change of the ankle mortise. Soft tissue swelli ng. XR/XR ankle RT min 3V* [id number] IMPRESSION: 1. Bimalleolar fracture stabilized with internal fixation. Alignment appears sa tisfactory for healing.
--- NOTE | 2023-12-16 11:20 | ANE.PACU2 ---
Inpatient post-anesthesia follow up: Airway intact: Yes Vital signs: Temperature 97 F Pulse Rate 56 Respiratory Rate 158 Blood Pressure 123/75 Pulse Oximetry 94 Oxygen Delivery Me thod Room Air Oxygen Flow Rate 8 Fraction of Inspir ed Oxygen Hydration adequate: Yes Nausea and vomiting: No Pain level: 1 Mental status: Baseline
--- NOTE | 2023-12-16 19:29 | PM.OP ---
Operative Report Date of procedure: December 16, 2023 Surgeon: Mayur Petty DPM Procedure: Date of procedure: 12/16/2023 Pre-op diagnosis: Right bimalleolar ankle fracture Post-op diagnosis: Same Post-op findings: Right bimalleolar ankle fracture. Poor bone quality Procedure done: Open reduction internal fixation right bimalleolar ankle fracture CPT 49174 Implants: Fibular hook plate with 2.7, 3.5 locking and nonlocking screws from [employer]. 3.5 cortical screws headed [employer] x 2 Specimens removed: None Surgeon: Dr. Mayur Petty DPM Commercial Appraiser: Caro Garcia Estimated blood loss: 5 cc Tourniquet time: 73 minutes Complications: None Patient is a 48-year-old male that has a history of right bimalleolar ankle fracture. The extent of the injury necessitates open reduction internal fixation. A lengthy discussion regarding the procedure, including risks and complications has been had with the patient and is noted in the recent clinic note. Written and verbal consent have been obtained. All patient questions have been answered to the patient?s satisfaction. No written or verbal guarantees have been given or implied. The patient has been NPO since midnight. The history has been reviewed and the history and physical is current. The signed consent was confirmed and placed in the patient chart. Patient imaging has been reviewed and is consistent with the diagnosis. Under mild sedation, the patient was brought into the operating room and placed on the table in the supine position. IV antibiotics were given by the anesthesia team as preoperative surgical prophylaxis. General sedation was then performed by the anesthesiateam. A popliteal block was performed by the anesthesia department. A pneumatic tourniquet was then placed about the right thigh. The operative extremity was then prepped and draped in the usual fashion. The extremity was then elevated and exsanguinated before the tourniquet was inflated to 325 mmHg. After inflation, the following procedure was then performed. Attention was directed to the lateral aspect of the right ankle where an 8 cm incision was made overlying the fibula. Dissection was carried down through subcutaneous and superficial fascia using a #15 blade. Care was taken to preserve adjacent neurovascular structures as well as peroneal tendons. The periosteum of the fibula was incised to expose the underlying fibular fracture. Bone quality was noted to be extremely soft and poor. The fracture site was prepped using a combination of curette and rongeur. The distal aspect of the fibula was reduced to an anatomically appropriate position. However, due to the poor bone quality clamp was unable to maintain reduction. The distal fibula is manually held in anatomic position before guidewire was driven through the distal aspect of the fibula up into the proximal fibular shaft to maintain position. It was decided that a fibular plate would be most appropriate to maintain fixation. This was applied to the lateral aspect of the fibula. The holes of the plate were drilled and filled in standard fashion using a combination of 2.7 3.5 locking screws. Good position of the plate and screws was noted clinically as well as on C-arm imaging. Attention was then directed to the medial aspect of the ankle. Medial malleolus fracture was visualized on C-arm imaging. 2 guidewires were driven percutaneously into the medial malleolus across the fracture site. A #15 blade was used to make a stab incision over this area. Cannulated drill system was used to drill over the wires. Next, two 3.5 cortical headed screws were inserted into the medial malleolus spanning the medial malleoli fracture. Good positioning of the screws was visualized on C-arm imaging. The syndesmosis was stressed under live fluoroscopy and was noted to be intact. Incision sites were irrigated with copious amounts of sterile saline before attention was directed to closure. Deep tissue was closed with 3-0 Vicryl followed by subcuticular closure with 4-0 Vicryl and skin closure with 3-0 nylon in horizontal mattress fashion. The tourniquet was let down good hyperemic response was noted all digits of the right foot. The incision site was dressed with Xeroform, 4 x 4 gauze, Kerlix, Pipe. Patient was placed in a cam boot. The patient tolerated the procedure and anesthesia well and without complication. The patient was transported from the operating room to the recovery room with vital signs stable and vascular status intact to all digits of the right foot. The patient was given both written and verbal instructions to remain nonweightbearing to the operative extremity, to keep dressings/splint clean, dry and intact and to take pain medication as directed. The patient will follow-up in the outpatient setting at their scheduled appointment. The patient was discharged with my personal number and was instructed to call if any questions or issues should arise. They were discharged home once anesthesia criteria was met.
== END 2023-12-16 12:20 | disposition home or self-care (01) ==
PROVIDERS: PCP Nurse Practitioner Family; Visit Provider Podiatrist Foot & Ankle Surgery
PROC: (CPT 27814; principal; 2023-12-16 09:20)
DX: S82.841A Displaced bimalleolar fracture of right lower leg, initial encounter for closed fracture (principal); W22.8XXA Striking against or struck by other objects, initial encounter; F17.200 Nicotine dependence, unspecified, uncomplicated; R03.0 Elevated blood-pressure reading, without diagnosis of hypertension
CPT/HCPCS: 27814; 73610; 76000; C1713; J0131; J0690; J1100; J2250; J2405; J2704; J2795; J3010; J7030

== ENCOUNTER → 2023-12-30 14:16 | Outpatient (BNVA) | payer OTHER, SELFPAY | PROVIDERS: PCP Nurse Practitioner Family; Visit Provider Podiatrist Foot & Ankle Surgery | DX: S82.841A Displaced bimalleolar fracture of right lower leg, initial encounter for closed fracture (principal); X58.XXXA Exposure to other specified factors, initial encounter | CPT/HCPCS: 73610 ==

== ENCOUNTER → 2024-01-11 13:13 | Outpatient (BNVA) | payer OTHER, SELFPAY | PROVIDERS: PCP Nurse Practitioner Family; Visit Provider Podiatrist Foot & Ankle Surgery | DX: S82.841A Displaced bimalleolar fracture of right lower leg, initial encounter for closed fracture (principal); X58.XXXA Exposure to other specified factors, initial encounter | CPT/HCPCS: 73610 ==

== ENCOUNTER → 2024-01-25 14:52 | Outpatient (BNVA) | payer OTHER, SELFPAY | PROVIDERS: PCP Nurse Practitioner Family; Visit Provider Podiatrist Foot & Ankle Surgery | DX: S82.841D Displaced bimalleolar fracture of right lower leg, subsequent encounter for closed fracture with routine healing; Z98.890 Other specified postprocedural states; X58.XXXD Exposure to other specified factors, subsequent encounter | CPT/HCPCS: 73610 ==

== ENCOUNTER → 2024-02-09 10:19 | Outpatient (BNVA) | payer OTHER, SELFPAY | PROVIDERS: PCP Nurse Practitioner Family; Visit Provider Podiatrist Foot & Ankle Surgery | DX: S82.841D Displaced bimalleolar fracture of right lower leg, subsequent encounter for closed fracture with routine healing; X58.XXXD Exposure to other specified factors, subsequent encounter; Z98.890 Other specified postprocedural states | CPT/HCPCS: 73610 ==

== ENCOUNTER 2024-03-01 06:00 | Outpatient (RCR) | payer OTHER, SELFPAY | END 2024-03-25 23:59 | disposition home or self-care (01) | LOC: WPT 06:00 | PROVIDERS: Visit Provider Podiatrist Foot & Ankle Surgery | DX: S82.844D Nondisplaced bimalleolar fracture of right lower leg, subsequent encounter for closed fracture with routine healing (principal); X58.XXXD Exposure to other specified factors, subsequent encounter | CPT/HCPCS: 97110; 97112; 97161; 97530 ==

== ENCOUNTER 2024-05-02 15:00 | Outpatient (CLI) | payer OTHER, SELFPAY ==
--- NOTE | 2024-05-02 15:30 | XR_ITS ---
WS: [id number] SCREENING DEXA SCAN [employer] CLINICAL INFORMATION: M81.0 - Age-related osteoporosis without current patholog... COMPARISON: None. FINDINGS: The L1-L4 bone mineral density measures 1.160 g/cm2. This corresponds to a T score score of -0.5 and Z score of -0.6. Left femoral neck bone mineral density measures 1.073 g/cm2. This corresponds to a T score of -0.2 and Z score of 0.0. Right femoral neck bone mineral density measures 1.011 g/cm2. This corresponds to a T score -0.6of and Z score of -0.5. Mean femoral neck bone mineral density measures 1.042 g/cm2. This corresponds to a T score of -0.4 and Z score of -0.2. XR/XR DEXA axial skeleton* 74011 IMPRESSION: Normal bone mineralization. Patient's FRAX calculated 10 year probability for major osteoporotic fracture i s 11.7% and osteoporotic hip fracture is 1.5%.
== END 2024-05-02 15:01 | disposition home or self-care (01) ==
LOC: RAD 15:01
PROVIDERS: PCP Nurse Practitioner Family; Visit Provider Nurse Practitioner Family
DX: M81.0 Age-related osteoporosis without current pathological fracture (principal)
CPT/HCPCS: 77080